=== PATIENT | female | born 1950 | race Caucasian/White ===

== ENCOUNTER 2020-03-04 15:30 | Emergency (ER) | payer MEDICARE ==
--- NOTE | 2020-03-04 15:37 | ED.PDOC ---
History of Present Illness - General Time Seen by Provider: 03/04/20 15:31 Source: patient Exam Limitations: no limitations - History of Present Illness Occurred: just prior to arrival Pain - Lower Extremity: moderate: Right Knee - had knee replacement September, [place], Right Ankle - bruising from fall, Right Foot Method of Injury: direct blow, fell Allergies/Adverse Reactions: Allergies Lorazepam [From Ativan] Allergy (Verified 03/04/20 16:04) Home Medications: Ambulatory Orders Furosemide 20 mg PO DAILY 03/04/20 Lactulose 15 ml PO BID 03/04/20 Levothyroxine Sodium [Synthroid] 100 mcg PO DAILY 03/04/20 Multiple Minerals W/ Vitamins [Citracal Plus] 2 tab PO DAILY 03/04/20 RX: Estradiol 2 mg PO DAILY 03/04/20 RX: Omeprazole 40 mg PO DAILY 03/04/20 RX: diphenhydrAMINE HCL [Benadryl] 25 mg PO DAILY 03/04/20 Spironolactone 1 tablet PO BID 03/04/20 Zolpidem Tartrate [Ambien] 10 mg PO DAILY 03/04/20 Review of Systems - Review of Systems Constitutional: States: no symptoms reported EENTM: States: no symptoms reported Respiratory: States: no symptoms reported Cardiology: States: no symptoms reported Gastrointestinal/Abdominal: States: no symptoms reported Genitourinary: States: no symptoms reported Musculoskeletal: States: joint pain, joint swelling Skin: States: other - bruising Neurological: States: no symptoms reported Family Medical History - Family History Mother Family History: Unknown Living Status: Unknown Physical Exam - Physical Exam General Appearance: Alert, No apparent distress Eyes, Ears, Nose, Throat: normal ENT inspection Neck: full range of motion, supple, normal inspection Cardiovascular/Respiratory: normal peripheral pulses Back: normal inspection Thigh/Hip: normal ROM Leg: normal inspection Knee: ecchymosis, pain, soft tissue tenderness, other - r knee has a surgical scar, bruising and swelling overlie the patella. Flexion and extension intact. Patellar tendon intact Foot: soft tissue tenderness - few areas of ecchymosis aroundd anterior foot and ankle Neuro/Tendon: normal sensation, normal tendon functions Mental Status: alert, oriented x 3 Progress - EKG/XRAY/CT XRAY: knee - knee replacement. hardware in proper alignment, no patellar fracture, no effusion Departure - Departure Clinical Impression: Contusion, knee and lower leg Disposition: Discharge to Home or Self Care Condition: Good Departure Forms: ED Discharge - Pt. Copy, Patient Portal Self Enrollment Instructions: DI for Leg Pain Home Medications: Ambulatory Orders Furosemide 20 mg PO DAILY 03/04/20 Lactulose 15 ml PO BID 03/04/20 Levothyroxine Sodium [Synthroid] 100 mcg PO DAILY 03/04/20 Multiple Minerals W/ Vitamins [Citracal Plus] 2 tab PO DAILY 03/04/20 RX: Estradiol 2 mg PO DAILY 03/04/20 RX: Omeprazole 40 mg PO DAILY 03/04/20 RX: diphenhydrAMINE HCL [Benadryl] 25 mg PO DAILY 03/04/20 Spironolactone 1 tablet PO BID 03/04/20 Zolpidem Tartrate [Ambien] 10 mg PO DAILY 03/04/20
--- NOTE | 2020-03-04 16:06 | RAD ---
EXAM DESCRIPTION: Knee,Right 1 or 2 Views CLINICAL HISTORY: 69 years Female, injury COMPARISON: None. TECHNIQUE: 2 view radiograph of the right knee. IMPRESSION: Total right knee arthroplasty in place without hardware complication such as prosthetic or periprosthetic fracture or hardware loosening. Structures in normal anatomic alignment. Patellar resurfacing. There may be a small subtalar knee joint effusion. Moderate prepatellar soft tissue swelling. Electronically signed by: Guero Hammond MD 03/04/2020 4:05 PM CDT
[2020-03-04 16:25] VITALS: BP 137/65; TEMP 98.1; O2SAT 98
== END 2020-03-04 16:24 | disposition home or self-care (01) ==
LOC: ER 15:30
DX: S80.01XA Contusion of right knee, initial encounter (principal); Z96.651 Presence of right artificial knee joint; W18.30XA Fall on same level, unspecified, initial encounter; Y92.9 Unspecified place or not applicable

== ENCOUNTER 2020-03-05 01:19 | Emergency (ER) | payer MEDICARE ==
[2020-03-05] MEDS: SODIUM CHLORIDE 0.9% 1000ML 1,000 ML IVS ONE (01:50)
--- NOTE | 2020-03-05 02:53 | ED.PDOC ---
History of Present Illness - General Chief Complaint: Trauma Time Seen by Provider: 03/05/20 01:33 Source: patient, family Exam Limitations: no limitations - History of Present Illness Initial Comments: 69 y/o female found on the floor by her . She had taken her usual ambien and then a muscle relaxer that she doesn't usually take. She was here earlier today for unrelated complaint Occurred: just prior to arrival Severity: mild Injuries/Pain Location: no injury Reason for Fall: other - low blood pressure Loss of Consciousness: brief (seconds) Associated Symptoms (Fall): denies symptoms Allergies/Adverse Reactions: Allergies Lorazepam [From Ativan] Allergy (Verified 03/04/20 16:04) Home Medications: Ambulatory Orders Estradiol 2 mg PO DAILY 03/04/20 Furosemide 20 mg PO DAILY 03/04/20 Lactulose 15 ml PO BID 03/04/20 Levothyroxine Sodium [Synthroid] 100 mcg PO DAILY 03/04/20 Multiple Minerals W/ Vitamins [Citracal Plus] 2 tab PO DAILY 03/04/20 Omeprazole 40 mg PO DAILY 03/04/20 Spironolactone 1 tablet PO BID 03/04/20 Zolpidem Tartrate [Ambien] 10 mg PO DAILY 03/04/20 diphenhydrAMINE HCL [Benadryl] 25 mg PO DAILY 03/04/20 Review of Systems - Review of Systems Constitutional: States: weakness EENTM: States: no symptoms reported Respiratory: States: no symptoms reported Cardiology: States: no symptoms reported Gastrointestinal/Abdominal: States: no symptoms reported Genitourinary: States: no symptoms reported Musculoskeletal: States: joint swelling, other - R knee injury earlier today Skin: States: no symptoms reported Neurological: States: no symptoms reported Endocrine: States: no symptoms reported Hematologic/Lymphatic: States: no symptoms reported Past Medical History (General) - Patient Medical History Hx Seizures: No Hx Stroke: No Hx Dementia: No Hx Asthma: No Hx of COPD: No Hx Cardiac Disorders: No Hx Congestive Heart Failure: No Hx Pacemaker: No Hx Hypertension: No Hx Thyroid Disease: No Hx Diabetes: No Hx Gastroesophageal Reflux: No Hx Renal Disease: No Hx Cancer: No Hx of HIV: No Hx Hepatitis C: No Hx MRSA: No Surgical History: gastric bypass, Hysterectomy, other - Vaccination History Hx Tetanus, Diphtheria Vaccination: Yes Hx Influenza Vaccination: Yes Hx Pneumococcal Vaccination: Yes - Social History Hx Tobacco Use: No Hx Chewing Tobacco Use: No Hx Alcohol Use: No - Previous use Hx Substance Use: No Hx Substance Use Treatment: No Hx Depression: No Feels Threatened In Home Enviroment: No Feels Threatened In a Relationship: No Hx Physical Abuse: No Hx Emotional Abuse: No Hx Suspected Abuse: No - Female History Patient is a Female of Child Bearing Age (10 -59 yrs old): No Physical Exam - Physical Exam General Appearance: Alert, Comfortable, No apparent distress Head Injury: no evidence of injury Eye Exam: bilateral normal ENT Exam: hearing grossly normal, no evidence of ENT injury Cardiovascular/Respiratory: regular rate, rhythm, no M/R/G, normal breath sounds, no respiratory distress Gastrointestinal/Abdominal: non tender, soft, no organomegaly Extremity Exam: other - R knee swollen from fall earlier today Neurologic: teacher adult education II-XII nml as tested, no motor/sensory deficits, alert, normal mood/affect, oriented x 3 Skin Exam: normal color - Morrill Coma Score Best Eye Response (Morrill): (4) open spontaneously Best Verbal Response (Morrill): (5) oriented Best Motor Response (Morrill): (6) obeys commands Morrill Total: 15 Progress - EKG/XRAY/CT EKG: Sinus, no ST T wave changes Comments: rate 66, normal axis normal intervals Departure - Departure Clinical Impression: Orthostatic hypotension, Adverse effects of medication Disposition: Discharge to Home or Self Care Condition: Good Departure Forms: ED Discharge - Pt. Copy, Patient Portal Self Enrollment Instructions: DI for Trauma Home Medications: Ambulatory Orders Estradiol 2 mg PO DAILY 03/04/20 Furosemide 20 mg PO DAILY 03/04/20 Lactulose 15 ml PO BID 03/04/20 Levothyroxine Sodium [Synthroid] 100 mcg PO DAILY 03/04/20 Multiple Minerals W/ Vitamins [Citracal Plus] 2 tab PO DAILY 03/04/20 Omeprazole 40 mg PO DAILY 03/04/20 Spironolactone 1 tablet PO BID 03/04/20 Zolpidem Tartrate [Ambien] 10 mg PO DAILY 03/04/20 diphenhydrAMINE HCL [Benadryl] 25 mg PO DAILY 03/04/20
[2020-03-05 03:11] VITALS: BP 99/58; TEMP 97.8; O2SAT 97
== END 2020-03-05 03:10 | disposition home or self-care (01) ==
LOC: ER 01:19
DX: I95.2 Hypotension due to drugs (principal); T48.205A Adverse effect of unspecified drugs acting on muscles, initial encounter; Y92.9 Unspecified place or not applicable
CPT/HCPCS: 36415; 80048; 81001; 85025; 93005; J7030